=== PATIENT | female | born 2000 | race African-American/Black ===

== ENCOUNTER 2020-11-03 11:27 | Emergency (ER) | payer OTHER, SELFPAY ==
--- NOTE | ~2020-11-03 | XR_ITS ---
EXAMINATION: XR chest 2V 11/03/2020 12:10 INDICATION: Shortness of breath PROCEDURE: 2 view chest COMPARISON: No prior studies for comparison. FINDINGS: The lungs are clear. The cardiomediastinal silhouette is within normal limits. There are no pleural effusions. There is no pneumothorax suspected. IMPRESSION: 1: NO ACUTE CARDIOPULMONARY DISEASE. Reviewed, dictated and finalized at location B.
[2020-11-03 11:52] VITALS: BP 115/78; PULSE 80; RESP 12; TEMP 36.9; O2SAT 99
--- NOTE | 2020-11-03 11:58 | ED.URI ---
HPI - URI/Sore Throat General Chief Complaint: Upper Respiratory Infection Stated Complaint: trouble breathing/cough Time Seen by Provider: 11/03/20 11:50 Source: patient Mode of arrival: ambulatory Limitations: no limitations History of Present Illness HPI Narrative: Mandi Walker is a 20 yo female with a PMH of bronchitis who comes to [facility] with complaints of exertional shortness of breath for the last week or 2 and difficulty with coughing when laying down. Patient's cough is dry and nonproductive. Has an albuterol inhaler that she uses at nighttime is cough is not proving Related Data Allergies Allergy/AdvReac Type Severity Reaction Status Date / Time No Known Allergies Allergy Verified 11/03/20 11:43 Review of Systems Review of Systems: Narrative: CONSTITUTIONAL: Denies fever, chills, sweats. EYES: Denies visual changes, redness, discharge. ENT: Denies rhinorrhea, congestion, sore throat, otalgia. CARDIOVASCULAR: Denies chest pain, palpitations, edema. RESPIRATORY: Denies dyspnea, wheezing, cough-exertional shortness of breath, coughing when lying flat at night GASTROINTESTINAL: Denies abdominal pain, nausea, vomiting, diarrhea. GENITOURINARY: Denies dysuria, hematuria, abnormal discharge SKIN: Denies rash or itching. NEUROLOGIC: Denies numbness, or focal weakness. PSYCHIATRIC: Denies anxiety or depression. [facility] Past Medical History Medical History Bronchitis Family History Family History Other Hypertension Social History Social History (Updated 11/03/20 @ 12:01 by Maricruz Batres CNP) Smoking status: Never smoker Alcohol intake: never Comments At time of signature, I agree with nursing past medical, surgical, social and family history. There is no relevant family history pertinent to the presenting complaint. Exam Narrative: Exam Narrative: GENERAL: This is a well-nourished, well-developed patient, in mild distress. HEAD: normocephalic, atraumatic. EYES: Sclera clear/white. Vision is grossly intact. EARS: External ears normal, Hearing grossly intact. NOSE: External nose normal without nasal discharge, nares without redness, no rhinorrhea. THROAT: Mucous membranes moist, NECK: Neck supple, non-tender CARDIOVASCULAR: Regular rate and rhythm without murmurs, gallops, or rubs. RESPIRATORY: Coarse to auscultation. Breath sounds diminished in lower right. No wheezes, rales, or rhonchi. GASTROINTESTINAL: Abdomen soft, non-tender, SKIN: warm, intact with no suspicious lesions or rash, good texture and turgor. NEURO: awake, alert, and oriented to person, place and time. There were no obvious focal neurologic abnormalities. Steady gait EXTREMITIES: Normal range of motion. BACK: Nontender without deformity Course Course Emergency Course: Patient comes to [facility] for evaluation of exertional shortness of breath and dry cough when laying flat at night Covid test-neg Chest x-ray-no acute cardiopulmonary disease Started on prednisone, Zyrtec, cough syrup- continue albuterol Follow-up with clinic or PCP Vital Signs Vital signs: Vital Signs Temperature 98.5 F 11/03/20 11:52 Pulse Rate 80 11/03/20 11:52 Respiratory Rate 12 11/03/20 11:52 Blood Pressure 115/78 11/03/20 11:52 Pulse Oximetry 99 11/03/20 11:52 Temperature 98.5 F 11/03/20 11:52 Pulse Rate 80 11/03/20 11:52 Respiratory Rate 12 11/03/20 11:52 Blood Pressure 115/78 11/03/20 11:52 Pulse Oximetry 99 11/03/20 11:52 MDM - URI/Sore Throat Differential Diagnosis Differential diagnosis: Likely upper respiratory infection, viral infection, bronchitis, pharyngitis and other Lab Data Labs: Lab Results 11/03/20 Range/Units 12:01 POC SARS CoV-2 Ag Negative (Negative) Critical Care Time Critical Care Time Critical Care Time: No Discharge Plan Discharge Clinical
== END 2020-11-03 12:55 | disposition home or self-care (01) ==
PROVIDERS: Emergency Provider Nurse Practitioner
DX: J40 Bronchitis, not specified as acute or chronic (principal); J06.9 Acute upper respiratory infection, unspecified; Z20.822 Contact with and (suspected) exposure to COVID-19
CPT/HCPCS: 71046; 87426; 99213; C9803; G0463